=== PATIENT | female | born 1995 | race African-American/Black ===

== ENCOUNTER 2017-03-30 13:45 | Emergency (ER) | payer MEDICAID ==
[~2017-03-30] VITALS: Ht 167.6 cm; Wt 75.0 kg
[2017-03-30 13:48] VITALS: BP 120/71
== END 2017-03-30 18:08 | disposition left against medical advice (07) ==
LOC: ER 18:08
DX: R07.89 Other chest pain (principal); Z53.21 Procedure and treatment not carried out due to patient leaving prior to being seen by health care provider
CPT/HCPCS: 93005